=== PATIENT | female | born 1990 ===

== ENCOUNTER 2016-11-23 17:34 | Emergency (ER) | payer OTHER ==
[~2016-11-23] VITALS: Ht 160 cm; Wt 64.1 kg
[2016-11-23 17:38] VITALS: TEMP 37.1; Ht 160 cm; Wt 64.1 kg
[2016-11-23] MEDS ORDERED: GI COCKTAIL PO STA (17:56)
[2016-11-23] MEDS ORDERED: ALBUT/IPRATROP 3MG/0.5MG NEB 3 ML VIAL INH STA (17:56)
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
[2016-11-23] MEDS ORDERED: ALUMINUM/MAGNESIUM SUSP 30 ML UDC ONE (18:04)
[2016-11-23] MEDS ORDERED: LIDOCAINE HCL 2% VISC SOLN 20 ML UDC ONE (18:04)
[2016-11-23] MEDS ORDERED: ETONMIS VAGRING (18:17)
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
[2016-11-23 18:58] VITALS: BP 130/88; PULSE 76; O2SAT 99
== END 2016-11-23 19:12 | disposition home or self-care (01) ==
LOC: C.EDB 17:37 → C.EDA 19:12
DX: J68.9 Unspecified respiratory condition due to chemicals, gases, fumes and vapors (principal); Z77.098 Contact with and (suspected) exposure to other hazardous, chiefly nonmedicinal, chemicals